=== PATIENT | female | born 1980 | race Caucasian/White ===

== ENCOUNTER 2024-01-23 10:34 | Emergency (ER) | payer SELFPAY ==
[2024-01-23 10:42] VITALS: BP 165/79; PULSE 72; RESP 18; TEMP 36.8; O2SAT 100; BMI 24.2
--- NOTE | 2024-01-23 10:56 | ED_ITS ---
HPI - Nausea/Vomiting/Diarrhea 2 General: Chief complaint: Nausea/Vomiting/Diarrhea Stated complaint: Vomiting, headache Time Seen by Provider: 01/23/24 10:42 Source: patient Mode of arrival: ambulatory Limitations: no limitations History of Present Illness: 43-year-old female states over the last 2 days she been having nausea vomiting along with some abdominal cramps. States she has had multiple episodes of vomiting denies any diarrhea she denies any severe abdominal pain states it mainly hurts when she vomits. States she is also been having some chest pains with intercourse but states this has been going on for weeks denies any chest pain currently denies any shortness of breath. Associated nausea: Yes Associated symtoms: Reports chest pain and nausea; Denies headache(s) Review of Systems 2 Const: Denies: fever(s), chills, body aches or change in appetite Eyes: Denies: blurry vision or eye discomfort ENMT: Denies: throat pain or dental pain Card: Reports: chest pain Resp: Denies: dyspnea GI: Reports: nausea and vomiting; Denies: abdominal pain or diarrhea Musc: Denies: neck pain or back pain Skin/Breast: Denies: rash Neuro: Denies: headache(s) Physical Exam 2 Const: COMMON NORMALS: no acute distress, patient oriented x3 and healthy appearing HENMT: COMMON NORMALS: normocephalic and atraumatic HEAD & SCALP: n ormocephalic and atraumatic Neck/C-Spine: COMMON NORMALS: full ROM and supple Chest: COMMONS NORMALS: normal inspection of the chest and normal palpation of entire chest wall Resp: COMMON NORMALS: normal respiratory effort, No retractions, No use of accessory muscles and clear to auscultation bilaterally AUSCULTATION: clear to auscultation bilaterally Cardio: COMMON NORMALS: regular rate, regular rhythm and No murmurs present (Cardio) RATE: regular rate RHYTHM: regular rhythm GI: COMMON NORMALS: Normal to inspection, nondistended, normoactive bowel sounds present, Soft to palpation, non-tender and no masses PALPATION: Yes Soft to palpation Extremity: COMMON NORMALS: normal to inspection and full ROM Neuro: COMMON NORMALS: patient oriented x3, moves all extremities and no focal motor deficits Psych: COMMON NORMALS: mental status grossly normal, Normal thought process present and cooperative THOUGHT PROCESS: Normal thought process present Skin: COMMON NORMALS: no rashes or lesions noted and no wounds GENERAL SKIN EXAM: no rashes or lesions noted Course 2 Vital Signs: Vital signs: Vital Signs Temperature 98.2 F 01/23/24 10:42 Pulse Rate 72 01/23/24 10:42 Respiratory Rate 18 01/23/24 10:42 Blood Pressure 165/79 01/23/24 10:42 Pulse Oximetry 100 01/23/24 10:42 Oxygen Delivery Me thod Room Air 01/23/24 10:42 MDM - Nausea/Vomiting/Diarrhea Medical Decision Making Patient presents here with vomiting is likely a viral GI bug she is well- appearing here she had some chest pain it has been going on for weeks her troponin EKG is normal will prescribe her Zofran she is follow-up with PCP return if worsening she understands agrees to plan Medical Records I reviewed the patient's medical records. Lab Data I reviewed the patient's lab results. 01/23/24 11:23 01/23/24 11:45 Laboratory Results WBC 6.46 10^3/uL (3.29-11.43) 01/23/24 11:23 RBC 4.59 10^6/uL (3.85-5.65) 01/23/24 11:23 Hgb 13.20 g/dL (11.27-16.99) 01/23/24 11:23 Hct 40.4 % (36-47) 01/23/24 11:23 MCV 88.0 fl (85-98) 01/23/24 11:23 MCH 28.8 pg (27-33) 01/23/24 11:23 MCHC 32.7 g/dL (30-55) 01/23/24 11:23 RDW 12.4 % (12.1-15.1) 01/23/24 11:23 Plt Count 274 10^3/cmm (157-399) 01/23/24 11:23 MPV 10.4 fL (7.4-10.4) 01/23/24 11:23 Neut % (Auto) 71.9 % 01/23/24 11:23 Lymph % (Auto) 20.7 % 01/23/24 11:23 [place] % (Auto) 5.1 % 01/23/24 11:23 Eos % (Auto) 1.5 % 01/23/24 11:23 Baso % (Auto) 0.5 % 01/23/24 11:23 Neut # (Auto) 4.64 10^3/uL (1.8-7.7) 01/23/24 11:23 Lymph # (Auto) 1.3 10^3/uL (0.8-4.8) 01/23/24 11:23 [place] # (Auto) 0.3 10^3/uL (0.2-0.9) 01/23/24 11:23 Eos # (Auto) 0.1 10^3/uL (0.0-0.8) 01/23/24 11:23 Baso # (Auto) 0.0 10^3/uL (0.0-0.1) 01/23/24 11:23 Nucleated RBC % (auto) 0 % 01/23/24 11: Nucleated RBCs # 0.0 /100WBC 01/23/24 11:23 Sodium 138 mmol/L (136-145) 01/23/24 11:45 Potassium Cancelled 01/23/24 11:23 Chloride 107 mmol/L (98-107) 01/23/24 11:45 Carbon Dioxide 22 mmol/L (22-29) 01/23/24 11:45 Anion Gap Cancelled 01/23/24 11:23 BUN 8 mg/dL (6-20) 01/23/24 11:45 Creatinine 0.6 mg/dL (0.5-0.9) 01/23/24 11:45 GFR Calculation 110.2 mL/min (90-130) 01/23/24 11:45 Glucose 110 mg/dL (65-115) 01/23/24 11:45 Calculated Osmolality 285 mOsm/kg (285-295) 01/23/24 11:45 Calcium 8.8 mg/dL (8.5-10.5) 01/23/24 11:45 Total Bilirubin 1.1 mg/dL (0.15-1.2) 01/23/24 11:45 AST 15 U/L (0-32) 01/23/24 11:45 ALT 6 U/L (0-33) 01/23/24 11:45 Alkaline Phosphatase 68 U/L (35-105) 01/23/24 11:45 Troponin T Baseline < 6 ng/L (0-10) 01/23/24 11:45 Total Protein 6.7 g/dL (6.6-8.7) 01/23/24 11:45 Albumin 4.1 g/dL (3.5-5.2) 01/23/24 11:45 Globulin 2.6 g/dL (1.3-4.6) 01/23/24 11:45 Lipase 31 U/L (13-60) 01/23/24 11:45 HCG, Qual Negative (Negative) 01/23/24 11:23 All radiology interpretation(s) finalized by discharge EKG Data EKG 1: I personally reviewed and interpreted this EKG as follows: EKG interpretation date: 01/23/24 EKG interpretation time: 10:59 Interpretation: sinus manan hr [address] or t wave abnormalities qrs 77 qtc 376 EKG 2: I personally reviewed and interpreted this EKG as follows: EKG interpretation date: 01/23/24 EKG interpretation time: 12:34 Interpretation: sinus manan hr [address] or t wave abnormalities qrs 83 qtc 381 Discharge Plan Discharge Patient Disposition: Home Clinical Impression: Vomiting Condition: Stable Prescriptions: New ondansetron 4 mg tablet,disintegrating 4 mg PO Q6H PRN (Reason: nausea and vomiting) Qty: 14 0RF Discharge Orders: Discharge ED (Routine); Ordered 01/23/24 Ordered By: Vaughn Barboza Discharge Diet: Advance as tolerated Discharge Activity: Resume usual activity Patient Instructions: Acute Nausea and Vomiting (ED) Coding Level of Care Code ED Assistant City Attorney for [place]
--- NOTE | 2024-01-23 10:59 | ECG_ITS ---
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 Measurements Intervals [place] Rate: 51 P: 61 MN: 144 QRS: -3 QRSD: 77 T: 58 QT: 399 QTc: 369 Interpretive Statements SINUS BRADYCARDIA POSSIBLE RIGHT VENTRICULAR CONDUCTION DELAY [RSR (QR) IN V1/V2] No previous ECG available for comparison Electronically Signed On 01-23-2024 15:49:05 CDT by Michel Downey M.D. [email or web address]
[2024-01-23 11:34] LABS: Basophils % 0.5 %; Eosinophils # 0.1 10^3/uL (0.0-0.8); Eosinophils % 1.5 %; Hematocrit 40.4 % (36-47); Lymphocytes # 1.3 10^3/uL (0.8-4.8); Lymphocytes % 20.7 %; Mean Corpuscular HGB Conc 32.7 g/dL (30-55); Mean Corpuscular Hemoglobin 28.8 pg (27-33); Mean Platelet Volume 10.4 fL (7.4-10.4); Monocytes # 0.3 10^3/uL (0.2-0.9); Monocytes % 5.1 %; Neutrophils # 4.64 10^3/uL (1.8-7.7); Neutrophils % 71.9 %; Nucleated Red Blood Cells % 0 %; Platelet Count 274 10^3/cmm (157-399); Red Blood Count 4.59 10^6/uL (3.85-5.65); Red Cell Distribution Width 12.4 % (12.1-15.1); White Blood Count 6.46 10^3/uL (3.29-11.43)
[2024-01-23] MEDS: sodium chloride 0.9% 1,000 ML 999 ML IV (11:47)
[2024-01-23] MEDS: ondansetron 2 mg/ML SDV 2 mL 4 MG IVP (11:47)
[2024-01-23 11:49] LABS: HCG, Serum Qual Negative (Negative)
[2024-01-23 12:10] LABS: Troponin(5th) Baseline < 6 ng/L (0-10)
[2024-01-23 12:15] LABS: Alanine Aminotransferase 6 U/L (0-33); Albumin Level 4.1 g/dL (3.5-5.2); Alkaline Phosphatase 68 U/L (35-105); Aspartate Amino Transferase 15 U/L (0-32); Blood Urea Nitrogen 8 mg/dL (6-20); Calcium 8.8 mg/dL (8.5-10.5); Carbon Dioxide 22 mmol/L (22-29); Chloride 107 mmol/L (98-107); Creatinine Clr Calc Pharmacy 122.3206; Globulin 2.6 g/dL (1.3-4.6); Glomerular Filtration Rate 110.2 mL/min (90-130); Glucose 110 mg/dL (65-115); Lipase 31 U/L (13-60); Osmolality Calculated 285 mOsm/kg (285-295); Sodium 138 mmol/L (136-145); Total Bilirubin 1.1 mg/dL (0.15-1.2); Total Protein 6.7 g/dL (6.6-8.7)
--- NOTE | 2024-01-23 12:56 | ECG_ITS ---
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 Measurements Intervals [place] Rate: 50 P: 64 MN: 144 QRS: 16 QRSD: 83 T: 62 QT: 408 QTc: 373 Interpretive Statements SINUS BRADYCARDIA POSSIBLE RIGHT VENTRICULAR CONDUCTION DELAY [RSR (QR) IN V1/V2] Compared to ECG 01/23/2024 10:59:36 No significant changes Electronically Signed On 01-23-2024 15:54:34 CDT by Michel Downey M.D. [email or web address]
[2024-01-23 12:57] LABS: Anion Gap 12.9 (5-19); Potassium 3.9 mmol/L (3.5-5.1)
[2024-01-23 13:03] LABS: Add Urine Microscopic? YES; Bilirubin Urine Neg (Negative); Blood Urine Neg (Negative); Glucose Urine UA Norm (Normal); Ketones Urine Negative (Negative); Leukocyte Esterase Urine Negative (Negative); Nitrate Urine Negative (Negative); Protein Urine Neg (Negative); Specific Gravity, Urine 1.005 (1.005-1.030); Urine Appearance Slightly Cloudy (CLEAR); Urine Color Yellow (Yellow); Urobilinogen Urine Norm (Negative); pH Urine 7 (5-7)
[2024-01-23 13:08] LABS: Add Urine Culture? No; Bacteria Urine TRACE /hpf; RBC Urine RARE /hpf (0-2); Squamous Epithelial Cell Urine 15-25 /hpf (0-5)
== END 2024-01-23 12:50 | disposition home or self-care (01) ==
PROVIDERS: Emergency Provider Emergency Medicine
DX: R11.11 Vomiting without nausea (principal); R00.1 Bradycardia, unspecified
CPT/HCPCS: 80053; 81001; 83690; 84484; 84703; 85025; 93005; 96374; 99284; J2405; J7030